=== PATIENT | female | born 1965 | race Caucasian/White ===

== ENCOUNTER 2018-09-24 05:06 | Day surgery (SDC) | payer BC ==
[2018-09-17 13:49] VITALS: BMI 26.6
[2018-09-24] MEDS ORDERED: oxyCODONE HCL 5 MG TABLET PO PRN ×2 (07:56)
[2018-09-24] MEDS ORDERED: ONDANSETRON 4 MG/2 ML VIAL IVPUSH PRN (07:56)
[2018-09-24] MEDS ORDERED: LACTATED RINGERS SOLUTION 1,000 ML IV SCH (08:00)
[2018-09-24] MEDS ORDERED: MIDAZOLAM HCL 2 MG/2 ML SINGLE DOSE VIAL ONE (08:21)
[2018-09-24] MEDS ORDERED: DEXAMETHASONE SOD PHOSPHATE 4 MG/1 ML VIAL ONE (08:22)
[2018-09-24] MEDS ORDERED: KETOROLAC TROMETHAMINE 30 MG/1 ML VIAL ONE (08:22)
[2018-09-24] MEDS ORDERED: PROPOFOL 20 ML ONE ×2 (08:22→09:28)
[2018-09-24] MEDS ORDERED: LIDOCAINE HCL/PF 2% SDV 5ML VIAL ONE (08:22)
[2018-09-24] MEDS ORDERED: SODIUM CHLORIDE 0.9% P/F 10 ML VIAL IJ ONE (08:24)
[2018-09-24] MEDS ORDERED: ceFAZolin SODIUM 1 GM VIAL ONE (08:24)
--- NOTE | 2018-09-24 09:03 | HP ---
Satellite [facility] - Chief Complaint Chief Complaint: right knee pain, patella femoral malalignment History of Present Illness: right knee pain History Source: Patient Limitations to Obtaining History: No Limitations - Past Medical History Allergies/Adverse Reactions: Allergies Allergy/AdvReac Type Severity Reaction Status Date / Time No Known Allergies Allergy Verified 10/20/14 17:37 Gastrointestinal: Yes: Crohn's Disease - Current Medications Current Medications: Home Medications Medication Instructions Recorded Alprazolam [Xanax] 0.25 mg PO DAILY #15 tablet 12/25/13 Omeprazole 40 mg PO DAILY capsule 12/25/13 Paroxetine HCl 20 mg PO DAILY #7 tablet 12/25/13 Levothyroxine [Synthroid -] 50 mcg PO DAILY 10/20/14 Mesalamine [Lialda] 1.2 gm PO DAILY 10/20/14 Atorvastatin Ca [Lipitor] 20 mg PO HS 09/17/18 Clidinium Brogan 1 gm PO BID 09/17/18 Docusate Sodium [Colace] 100 mg PO DAILY 09/17/18 Methylcellulose [Citrucel] 500 mg PO DAILY 09/17/18 Telmisartan/Hydrochlorothiazid 1 each PO HS 09/17/18 [Telmisartan-Hctz 80-25 mg Tab] Satellite Physical Exam - Physical Examination Vital Signs: Vital Signs Period Temp Pulse Resp BP Sys/Trevizo Pulse Ox Last 24 Hr 98.0 F 80 20 110/59 98 General Appearance: Well Nourished ENT: Clear Lung: Clear to auscultation Heart: Regular rate & rhythm Breasts: Soft Abdomen: Soft Extremities: No edema Satellite Impression/Plan - Impression/Plan Impression: right knee pain, PF malalignment Operative Procedure: right knee arthroscopy, lateral release Date to be Performed: 09/24/18
[2018-09-24] MEDS ORDERED: BUPIVACAINE HCL/PF 0.5% (5MG/ML) 10 ML VIAL ONE (09:25)
[2018-09-24] MEDS ORDERED: ceFAZolin SODIUM 1 GM VIAL IVPB ONE (09:31)
[2018-09-24] MEDS ORDERED: BUPIVACAINE HCL/PF (5 MG/ML) 30 ML VIAL IJ ONE (09:47)
--- NOTE | 2018-09-24 10:25 | OP ---
Operative Note - Note: Operative Date: 09/24/18 Pre-Operative Diagnosis: right knee pain, OA, patella femoral malalignment, stiffness, possible medial meniscus tear Operation: right knee arthroscopy, partial medial meniscectomy, debridement chondroplasty, lateral release, manipulation under anesthesia Post-Operative Diagnosis: Same as Pre-op Surgeon: Kash Pandey Anesthesiologist/SALES CLERK: Fernando Rogers Anesthesia: General, Local Specimens Removed: shavings Estimated Blood Loss (mls): 0 Drains, Volume Out (mls): 0 Blood Volume Replaced (mls): 0 Fluid Volume Replaced (mls): 500 Operative Report Dictated: Yes
[2018-09-24] MEDS ORDERED: oxyCODONE HCL 5 MG TABLET ONE (11:52)
[2018-09-24] MEDS ORDERED: oxyCODONE HCL 5 MG TABLET PO ONE (11:55)
[2018-09-24 12:03] VITALS: TEMP 97.8
[2018-09-24 12:29] VITALS: BP 135/74; PULSE 83
--- NOTE | 2018-09-25 05:49 | OP ---
DATE OF OPERATION: 09/24/2018 PREOPERATIVE DIAGNOSIS: Right knee pain, patellofemoral malalignment, medial meniscus tear, osteoarthritis, and stiffness. POSTOPERATIVE DIAGNOSIS: Right knee pain, patellofemoral malalignment, medial meniscus tear, osteoarthritis, and stiffness. PROCEDURE: Right knee arthroscopy, partial medial meniscectomy, debridement chondroplasty, arthroscopic lateral release, and manipulation under anesthesia . DRAINS: None. COMPLICATIONS: None. BLOOD LOSS: None. BLOOD GIVEN: None. FLUID REPLACEMENT: 500 mL. SPECIMENS: Arthroscopic shavings. SURGEON: Jeff Austin MD LIVESTOCK BROKER: None. ANESTHESIOLOGIST: Fernando Rogres MD ANESTHESIA: LMA anesthesia with local injection of 20 mL 0.5% Marcaine. INDICATIONS: This patient is a 53-year-old female with a preoperative diagnosis of right knee pain, osteoarthritis, patellofemoral malalignment, and a likely medial meniscus tear as well as mild stiffness. After understanding the potential risks, complications, alternatives, and benefits of surgery versus nonsurgical treatment, the patient elected to undergo this procedure. DESCRIPTION OF PROCEDURE: He was brought to the operating room, peripheral IV placed, and IV sedation given. Two grams of IV Ancef were given. LMA anesthesia was induced. Ample Webril and the Styrofoam ring were placed around the right thigh. The right lower extremity was placed into a C-clamp leg-boyd. I did a manipulation under anesthesia, and she did not have nearly as much stiffness as she had when she was conscious. I was able to easily flex her to 110 degrees and extend her to 0 degrees. The right lower extremity was then prepped and draped in sterile fashion, elevated, exsanguinated with an Esmarch bandage, and tourniquet inflated to 270 mmHg. A superomedial outflow portal was established, and lateral portal was established. Under direct visualization, a medial portal was established, and a diagnostic arthroscopy was performed. The medial compartment was seen to have degenerative type fraying of the body and posterior horn of the medial meniscus. This was debrided with a curved shaver. There were grade 1 changes of the medial femoral condyle and grade changes of the medial tibial plateau, but overall the osteoarthritis in the medial compartment was not terrible. There were some portions of deeper crevices. The intercondylar notch looked good. The ACL had the appropriate tension. In the lateral compartment, the patient had a discoid meniscus. There was some fraying. This was debrided, but overall the lateral femoral condyle and lateral tibial plateau looked good. Next, our attention turned to the patellofemoral joint, where the patient unfortunately had widespread areas of grade 4 osteoarthritis. There were widespread areas of the femoral trochlea, the lateral femoral condyle, and the entire undersurface of the patella which were completely devoid of cartilage with exposed bone and grade 4 chondromalacia. It looks like it had been there for quite some time. The curved shaver was introduced into the patellofemoral joint where I did a debridement chondroplasty on the unstable cartilage and crabmeat effect on the undersurface of the patella as well as the femoral trochlea, but as mentioned, there were vast areas of no cartilage. I removed some synovitis in the lateral gutter. Next, I put a spinal needle into the knee at the superolateral margin of the patella and used this as a guide, and using the ArthroCare Wand at the lowest setting, number 1, I did a arthroscopic lateral release with the ArthroCare Wand. It was cauterizing while I was doing the release, and I did see that when I did the release of the tight lateral tissue, the patella did come up a bit, and I was able to translocate it more medially. I used the shaver then to remove some debris, again checked the release, and it seemed to be adequate and complete. I put the patella through a full range of motion, although it looked like it was more in the middle of the femoral trochlea, again, there was such significant osteoarthritis. The area was copiously irrigated and washed out. All instrumentation and excess saline were removed. The arthroscopy portals were closed with 3-0 nylon suture. Then, 20 mL of 0.5% Marcaine was introduced into the joint. The area was then washed and dried, covered with Xeroform gauze, 4x4 gauze, Webril, and an KISHOR bandage. Tourniquet was taken down after a total tourniquet time of 25 minutes. There were no complications during the case. The patient tolerated the procedure well and was brought to the ambulatory recovery room in stable condition. JEFF AUSTIN M.D. [id number]
--- NOTE | 2018-09-26 16:50 | PATH ---
Surgical Pathology Report Patient Name: CHARLINE RIOS [facility]. Rec. #: [id number] /Age/Gender: 1965 (Age: 53) / F Account: [id number] Location: [facility] Taken: 09/24/2018 Received: 09/24/2018 Reported: 09/26/2018 Physicians: Kash Pandey M.D. Specimen(s) Received RIGHT KNEE SHAVINGS Clinical History Right knee internal derangement Final Diagnosis KNEE SHAVINGS, RIGHT, ARTHROSCOPY WITH LATERAL RELEASE: FRAGMENTS OF CARTILAGE, BONE, DENSE FIBROCONNECTIVE TISSUE, AND ADIPOSE TISSUE. 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 Comment: Although these findings are non-specific, dense lymphoplasmacytic infiltrate involving synovium with reactive synovial hyperplasia may be seen in association with rheumatoid arthritis. Correlation with clinical/radiologic and serologic findings is suggested. Electronically Signed Lizbeth Victoria M.D. Gross Description Received in formalin, labeled "right knee shavings," is a 5.5 x 4.5 x 0.7 cm. aggregate of krueger-yellow soft tissue fragments. A sales representative business courses portion is submitted in one cassette. 09/25/201809/25/2018
== END 2018-09-24 12:40 | disposition home or self-care (01) ==
LOC: JASU-SURG 05:06
PROVIDERS: ATTEND Orthopaedic Surgery
PROC: 0MNN4ZZ Release Right Knee Bursa and Ligament, Percutaneous Endoscopic Approach (ICD-10-PCS; 2018-09-24)
PROC: 0SBC4ZZ Excision of Right Knee Joint, Percutaneous Endoscopic Approach (ICD-10-PCS; principal; 2018-09-24 09:00)
DX: M23.203 Derangement of unspecified medial meniscus due to old tear or injury, right knee (principal); M25.661 Stiffness of right knee, not elsewhere classified; M17.11 Unilateral primary osteoarthritis, right knee
CPT/HCPCS: 88304-TC; 94760

== ENCOUNTER 2023-07-10 09:29 | Day surgery (SDC) | payer BC ==
[2023-07-02 10:58] VITALS: BMI 24.9
[2023-07-10 11:45] VITALS: RESP 19; TEMP 97.1
[2023-07-10 11:48] VITALS: BP 130/78; PULSE 73
== END 2023-07-10 11:55 | disposition home or self-care (01) ==
LOC: FASU-ENDO 09:29
PROVIDERS: ATTEND Internal Medicine Gastroenterology
PROC: 0DBL8ZX Excision of Transverse Colon, Via Natural or Artificial Opening Endoscopic, Diagnostic (ICD-10-PCS; 2023-07-10)
PROC: 0DBN8ZX Excision of Sigmoid Colon, Via Natural or Artificial Opening Endoscopic, Diagnostic (ICD-10-PCS; 2023-07-10)
PROC: 0DBM8ZX Excision of Descending Colon, Via Natural or Artificial Opening Endoscopic, Diagnostic (ICD-10-PCS; principal; 2023-07-10 11:05)
DX: D12.5 Benign neoplasm of sigmoid colon (principal); D12.7 Benign neoplasm of rectosigmoid junction; K64.2 Third degree hemorrhoids; K57.30 Diverticulosis of large intestine without perforation or abscess without bleeding; K63.89 Other specified diseases of intestine; R19.7 Diarrhea, unspecified
CPT/HCPCS: 88305-TC